=== PATIENT | female | born 1955 | race Caucasian/White ===

== ENCOUNTER 2018-11-10 03:38 | Emergency (ER) | payer BC ==
[2018-11-10] MEDS ORDERED: SODIUM CHLORIDE 0.9% 1000ML 1,000 ML IVS ONE (04:17)
[2018-11-10] MEDS ORDERED: HYOSCYAMINE SULFATE 0.5 MG/ML VIAL IV ONE (04:17)
--- NOTE | 2018-11-10 06:42 | ED.PDOC ---
History of Present Illness - General Chief Complaint: GI Problem Stated Complaint: Diarrhea Time Seen by Provider: 11/10/18 06:34 Information Source: patient Exam Limitations: no limitations - History of Present Illness Initial Comments: Diarrhea x 30 hrs Abdominal Pain Onset Location: generalized abdomen Pain Radiation: no radiation Quality: cramping Improving Factors: nothing Worsening Factors: eating Associated Symptoms: diarrhea Review of Systems - Review of Systems Constitutional: States: weakness. Denies: chills, fever EENTM: States: no symptoms reported Respiratory: States: no symptoms reported Cardiology: States: no symptoms reported Gastrointestinal/Abdominal: States: abdominal pain, diarrhea. Denies: nausea, vomiting Genitourinary: States: no symptoms reported Musculoskeletal: States: no symptoms reported Skin: States: no symptoms reported Neurological: States: no symptoms reported Endocrine: States: no symptoms reported Hematologic/Lymphatic: States: no symptoms reported Past Medical History (General) - Patient Medical History Hx Stroke: No Hx Congestive Heart Failure: No Hx Diabetes: No - Vaccination History Hx Influenza Vaccination: No Hx Pneumococcal Vaccination: No - Social History Hx Tobacco Use: No Hx Alcohol Use: No Family Medical History - Family History Mother Living Status: Hx Family;Other: Parkinson's and dementia Physical Exam - Physical Exam General Appearance: Alert, Obvious distress Eyes, Ears, Nose, Throat Exam: PERRL/EOMI, other - dry mucosa Neck: non-tender, full range of motion Respiratory: chest non-tender, lungs clear, normal breath sounds Cardiovascular/Chest: normal peripheral pulses, regular rate, rhythm, no edema Gastrointestinal/Abdominal: normal bowel sounds, non tender, soft Extremity: normal range of motion, non-tender, normal inspection, no pedal edema Skin Exam: normal color, warm/dry Lymphatic: no adenopathy Departure - Departure Clinical Impression: Diarrhea Qualifiers: Diarrhea type: presumed infectious Qualified Code(s): R19.7 - Diarrhea, unspecified Disposition: Discharge to Home or Self Care Departure Forms: ED Discharge - Pt. Copy, Patient Portal Self Enrollment Prescriptions: Hyoscyamine Sulfate [Levsin/Sl] 0.125 mg SL Q4HR PRN #15 sub PRN Reason: Abdominal Cramping Home Medications: Ambulatory Orders Hyoscyamine Sulfate [Levsin/Sl] 0.125 mg SL Q4HR PRN #15 sub 11/10/18
[2018-11-10 06:53] VITALS: BP 112/68; TEMP 98; O2SAT 98
== END 2018-11-10 06:53 | disposition home or self-care (01) ==
LOC: ER 03:38
DX: R19.7 Diarrhea, unspecified (principal)
CPT/HCPCS: 36415; 36416; 80053; 81001; 85025; J7030

== ENCOUNTER 2019-05-28 10:43 | Emergency (ER) | payer BC ==
[2019-05-28] MEDS ORDERED: SODIUM CHLORIDE 0.9% (FLUSH) 10 ML SYG IV PRN (11:12)
--- NOTE | 2019-05-28 11:15 | ED.PDOC ---
History of Present Illness - General Chief Complaint: Chest Pain/SD Stated Complaint: R chest wall discomfort Time Seen by Provider: 05/28/19 10:58 Source: patient Exam Limitations: no limitations - History of Present Illness Initial Comments: PT PRESENTS WITH COMPLAINT OF SEVERE RIGHT SIDED CHEST PAIN THAT HAS BEEN INTERMITTENT SINCE 8AM THIS MORNING ASSOCIATED WITH NAUSEA. PT DOES REPORT A RECENT NON PRODUCTIVE COUGH. PT STATES THAT THE SEVERITY OF THE PAIN HAS DECREASED AND NOW RATES IT A 4/10 DULL BURNING SENSATION. PT DENIES, FEVER, CHILLS, OR SOB. Timing/Duration: 1-3 hours Severity/Quality: severe, burning, sharp Location: other - RIGHT LATERAL CHEST WALL Chest Pain Radiation: no radiation Activities at Onset: none Improving Factors: nothing Worsening Factors: other - DEEP BREATHING Nitro Today/Relief: no nitro taken today Aspirin Treatment Today: no aspirin today Associated Symptoms: nausea/vomiting Allergies/Adverse Reactions: Allergies NO KNOWN ALLERGY Allergy (Verified 11/10/18 03:43) Home Medications: Ambulatory Orders NK 05/28/19 Review of Systems - Review of Systems Constitutional: Denies: chills, fever EENTM: Denies: nose congestion, throat pain Respiratory: States: cough. Denies: short of breath Cardiology: States: chest pain. Denies: palpitations Gastrointestinal/Abdominal: States: nausea. Denies: diarrhea, vomiting Genitourinary: Denies: dysuria, frequency Musculoskeletal: Denies: joint pain, joint swelling Skin: Denies: dryness, lesions Neurological: Denies: headache, numbness Past Medical History (General) - Patient Medical History Hx Stroke: No Hx Congestive Heart Failure: No Hx Diabetes: No Hx Gastroesophageal Reflux: No - Vaccination History Hx Influenza Vaccination: No Hx Pneumococcal Vaccination: No - Social History Hx Tobacco Use: No Hx Alcohol Use: No Family Medical History - Family History Mother Living Status: Hx Family;Other: Parkinson's and dementia Physical Exam - Physical Exam General Appearance: Alert, No apparent distress, Well Developed, Well Groomed, Well Hydrated, Well Nourished Eyes, Ears, Nose, Throat Exam: normal ENT inspection Neck: normal inspection Respiratory: lungs clear, normal breath sounds, no respiratory distress Cardiovascular/Chest: regular rate, rhythm, no murmur Gastrointestinal/Abdominal: non tender, soft Extremity: non-tender, normal inspection, no pedal edema Neurologic: alert, oriented x 3, depressed affect Skin Exam: normal color, warm/dry Progress - Progress Progress: 05/28/19 12:26 PT REFUSED PAIN MEDICATION, HOWEVER, ON RE-ASSESSMENT STATES THAT PAIN HAS NEARLY SUBSIDED ON ITS OWN. SHE NOW RATES IT AT A 2/10. LABS AND DIAGNOSTICS DISCUSSED WITH PT AND SPOUSE. RECOMMENDED THAT PT MONITOR BP AT HOME AND FOLLOW UP WITH PCP REGARDING ELEVATED BP READINGS. - Results/Orders Results/Orders: Laboratory Tests 05/28/19 05/28/19 11:19 11:19 WBC 5.4 RBC 4.77 Hgb 14.9 Hct 43.2 MCV 90.5 MCH 31.3 H MCHC 34.5 RDW 12.5 Plt Count 271 MPV 6.9 L Absolute Neuts (auto) 3.40 Absolute Lymphs (auto) 1.40 Absolute Monos (auto) 0.50 Absolute Eos (auto) 0.10 Absolute Basos (auto) 0.10 Neutrophils % 63.1 Lymphocytes % 25.5 Monocytes % 9.0 Eosinophils % 1.2 Basophils % 1.2 PT 9.9 INR 0.99 PTT (SP) 23.5 D-Dimer, Quantitative 0.48 Sodium 139 Potassium 3.7 Chloride 102 Carbon Dioxide 27 Anion Gap 13.7 BUN 20 H Creatinine 0.48 L BUN/Creatinine Ratio 41.7 H Random Glucose 86 Serum Osmolality 279.5 Calcium 9.8 Magnesium 2.2 Total Bilirubin 0.3 Direct Bilirubin < 0.1 Indirect Bilirubin 0.2 AST 23 ALT 27 Alkaline Phosphatase 70 Creatine Kinase 84 CK-MB (CK-2) 2.8 CK-MB (CK-2) % Not Reportable Troponin I < 0.02 B-Natriuretic Peptide 35.6 Serum Total Protein 7.5 Albumin 4.2 - EKG/XRAY/CT EKG: Sinus - @86BPM, NL INTERVALS, NL AXIS, no ST T wave changes - NO OLD EKG FO R COMPARISON Departure - Departure Clinical Impression: Pleuritic chest pain Time of Disposition: 12:28 Disposition: Discharge to Home or Self Care Condition: Good Departure Forms: ED Discharge - Pt. Copy, Patient Portal Self Enrollment Instructions: DI for Chest Pain Referrals: [facility] [Provider Group] - 1-2 Weeks Home Medications: Ambulatory Orders NK 05/28/19
--- NOTE | 2019-05-28 11:45 | RAD ---
COMPARISON: None FINDINGS: Frontal chest radiograph Heart size and pulmonary vessels are within normal limits. There is no pneumothorax or pleural effusion. The lungs are clear bilaterally. The soft tissues are unremarkable. No acute osseous findings. IMPRESSION: No acute cardiopulmonary abnormality. Electronically signed by: Ananth Patel MD 05/28/2019 11:42 AM CDT
[2019-05-28 12:44] VITALS: BP 159/92; TEMP 98; O2SAT 96
== END 2019-05-28 12:44 | disposition home or self-care (01) ==
LOC: ER 10:43
DX: R07.2 Precordial pain (principal); R05 Cough; R11.2 Nausea with vomiting, unspecified

== ENCOUNTER 2019-10-22 19:13 | Emergency (ER) | payer BC ==
[2019-10-22 19:58] VITALS: TEMP 98.2
--- NOTE | 2019-10-22 20:55 | ED.PDOC ---
History of Present Illness - General Chief Complaint: General Stated Complaint: kimble, itching and burning p eating Time Seen by Provider: 10/22/19 20:06 Source: patient, RN notes reviewed, Vital Signs reviewed, family - , RN/MD - PCP Exam Limitations: no limitations - History of Present Illness Initial Comments: patient is a 64-year-old white female who presents with complaints of ringing and wishing in her ears after she eats as well as like her body is on fire and itching all over after she eats. Timing/Duration: unsure Severity: mild Improving Factors: nothing Worsening Factors: eating Associated Symptoms: headaches, malaise Allergies/Adverse Reactions: Allergies NO KNOWN ALLERGY Allergy (Verified 11/10/18 03:43) Home Medications: Ambulatory Orders NK 05/28/19 Review of Systems - Review of Systems Constitutional: States: no symptoms reported EENTM: States: other - a whooshing noise in her ears, throbbing in her head, Respiratory: States: no symptoms reported Cardiology: States: no symptoms reported Gastrointestinal/Abdominal: States: no symptoms reported Musculoskeletal: States: no symptoms reported Skin: States: no symptoms reported Neurological: States: headache, paresthesia, tingling, other - burning sensation of her skin Endocrine: States: no symptoms reported All other Systems: Reviewed and Negative Past Medical History (General) - Patient Medical History Hx Seizures: No Hx Stroke: No Hx Dementia: No Hx Asthma: No Hx of COPD: No Hx Cardiac Disorders: No Hx Congestive Heart Failure: No Hx Pacemaker: No Hx Hypertension: No - currently moniting Hx Thyroid Disease: No Hx Diabetes: No Hx Gastroesophageal Reflux: Yes Hx Renal Disease: No Hx Cancer: No Hx of HIV: No Hx Hepatitis C: No Hx MRSA: No Surgical History: no surgical history - Vaccination History Hx Tetanus, Diphtheria Vaccination: Yes Hx Influenza Vaccination: No Hx Pneumococcal Vaccination: No Immunizations Up to Date: Yes - Social History Hx Tobacco Use: No Hx Alcohol Use: No Hx Substance Use: No Hx Substance Use Treatment: No Hx Depression: No Feels Threatened In Home Enviroment: No Feels Threatened In a Relationship: No Hx Physical Abuse: No Hx Emotional Abuse: No Hx Suspected Abuse: No - Activities of Daily Living Hospice Agency (if applicable):: None - Female History Patient is a Female of Child Bearing Age (10 -59 yrs old): No Family Medical History - Family History Mother Living Status: Hx Family;Other: Parkinson's and dementia Physical Exam - Physical Exam General Appearance: Alert, Anxious, Well Developed, Well Groomed, Well Hydrated, Well Nourished Eye Exam: bilateral normal Ears, Nose, Throat: hearing grossly normal, normal ENT inspection, normal p harynx Neck: non-tender, full range of motion, supple, normal inspection Respiratory: chest non-tender, lungs clear, normal breath sounds, no respiratory distress, no accessory muscle use Cardiovascular/Chest: normal peripheral pulses, regular rate, rhythm, no edema, no gallop, no JVD, no murmur Peripheral Pulses: radial,right: 2+, radial,left: 2+ Gastrointestinal/Abdominal: normal bowel sounds, non tender, soft, no organomegaly, no pulsatile mass Back Exam: normal inspection, no vertebral tenderness Extremity: normal range of motion, non-tender, normal inspection, no pedal edema Neurologic: mandrel maker II-XII nml as tested, no motor/sensory deficits, alert, normal mood/affect, oriented x 3 Skin Exam: normal color, warm/dry Lymphatic: no adenopathy Progress - Progress Progress: frontal diagnoses: CVA, TIA, anxiety disorder, heavy metal disease among others. 10/22/19 21:36 Patient lab testing is within normal limits. Review of labs performed at her PCPs office including a CBC, CMP were all within normal limits. Plan on discharge home with patient follow-up with PCP for further diagnostic testing. This plan of care with the patient and her and they voice understanding and agreement. Matthew Combs M.D. #[id number] - Results/Orders Results/Orders: Laboratory Results - last 24 hr 10/22/19 10/22/19 20:21 20:27 TSH 1.42 Free T4 0.97 Urine Color Yellow Urine Appearance Clear Urine pH 7.5 Ur Specific [place] 1.015 Urine Protein Negative Urine Glucose (UA) Negative Urine Ketones Negative Urine Blood Negative Urine Nitrite Negative Urine Bilirubin Negative Urine Urobilinogen 0.2 Ur Leukocyte Esterase Negative Urine RBC 0 Urine WBC 0 Ur Epithelial Cells 0 Urine Bacteria 0 TSH=1.42 Free T4= 0.97 Departure - Departure Clinical Impression: Tinnitus of both ears Headache Qualifiers: Headache type: unspecified Headache chronicity pattern: acute headache Intractability: not intractable Qualified Code(s): R51 - Headache Disposition: Discharge to Home or Self Care Condition: Good Departure Forms: ED Discharge - Pt. Copy, Patient Portal Self Enrollment Instructions: Tinnitus (Ringing in the Ears), Headache, Adult (DC) Referrals: Aj Wheatley MD [Primary Care Provider] - 1-5 Days Home Medications: Ambulatory Orders NK 05/28/19
[2019-10-22 21:43] VITALS: BP 149/87; O2SAT 97
== END 2019-10-22 21:46 | disposition home or self-care (01) ==
LOC: ER 19:13
DX: H93.13 Tinnitus, bilateral (principal); R51 Headache; K21.9 Gastro-esophageal reflux disease without esophagitis; R20.2 Paresthesia of skin

== ENCOUNTER → 2019-10-24 | Outpatient (CLI) | payer BC | LOC: GMA MATASK 14:36 | PROVIDERS: ATTEND Family Medicine | DX: I10 Essential (primary) hypertension (principal) ==

== ENCOUNTER → 2019-11-25 | Outpatient (CLI) | payer BC | LOC: LAB.O 08:11 | PROVIDERS: ATTEND Internal Medicine Gastroenterology | DX: R51 Headache (principal); K21.9 Gastro-esophageal reflux disease without esophagitis; R19.7 Diarrhea, unspecified; K57.30 Diverticulosis of large intestine without perforation or abscess without bleeding; I10 Essential (primary) hypertension ==

== ENCOUNTER → 2019-11-29 | Outpatient (CLI) | payer BC | LOC: LAB.O 10:18 | PROVIDERS: ATTEND Internal Medicine Gastroenterology | DX: R51 Headache (principal); K21.9 Gastro-esophageal reflux disease without esophagitis; R19.7 Diarrhea, unspecified; K57.30 Diverticulosis of large intestine without perforation or abscess without bleeding; I10 Essential (primary) hypertension ==